=== PATIENT | female | born 2000 | race Caucasian/White ===

== ENCOUNTER 2024-01-09 15:46 | Outpatient (CLI) | payer BC, SELFPAY ==
--- NOTE | ~2024-01-09 | CT_ITS ---
EXAMINATION: CT hip LT wo con DATE: 01/09/2024 16:00 INDICATION: Left hip pain TECHNIQUE: High resolution computed tomography (CT) of the left hip was performed without intravenous contrast. Additional sagittal and coronal reconstructions were performed. Automated exposure control and iterative reconstruction technique were employed. The dose-length product was 328.60 mGy-cm. COMPARISON: None FINDINGS: Bone alignment is normal. No fracture. Small region of subtle subarticular sclerosis at the apex of t he femoral head. Right hip joint space is normal. The left acetabular and femoral head/neck morpholog y appears normal. No joint effusion. The musculature at the visualized left hemipelvis and proximal l eft thigh appears unremarkable. Partially visualized at least 1.8 cm left adnexal cyst/follicle. Smal l amount of likely physiologic free fluid in the cul-de-sac. No pathologically enlarged left pelvic o r inguinal lymphadenopathy. IMPRESSION: 1. Small region of subtle subarticular sclerosis at the apex of the left femoral head which raises th e possibility of developing osteonecrosis. Consider MRI for more sensitive and specific evaluation. Reviewed, dictated and finalized at location B. IMPRESSION: 1. Small region of subtle subarticular sclerosis at the apex of the left femora l head which raises the possibility of developing osteonecrosis. Consider MRI f or more sensitive and specific evaluation.
== END 2024-01-09 15:47 ==
LOC: GOSHIMG 15:49
PROVIDERS: PCP Internal Medicine; Visit Provider Physician Assistant
DX: M25.552 Pain in left hip (principal); G89.29 Other chronic pain
CPT/HCPCS: 73700

== ENCOUNTER 2024-01-19 15:29 | Outpatient (CLI) | payer BC, SELFPAY ==
--- NOTE | ~2024-01-19 | MR_ITS ---
EXAMINATION: MR hip LT wo con DATE: 01/19/2024 16:32 INDICATION: Left hip pain. TECHNIQUE: Magnetic resonance imaging (MRI) of the left hip was performed without intravenous contras t. COMPARISON: Left hip CT 01/09/24 FINDINGS: Bones/cartilage: Bone alignment is normal. No fracture. The femoral head/neck morphologies are normal. There is no ost eonecrosis. Small [id number] images of left hip demonstrate normal cartilage. Labrum: The left acetabular labrum is normal. Fluid: There is no hip joint effusion. No significant trochanteric bursitis. Soft tissues: There is an intrauterine device in expected position. The hamstring origins are normal. The iliopsoas tendons are normal. The gluteus minimus and gluteus medius tendons are normal. IMPRESSION: 1. Normal left hip. Reviewed, dictated and finalized at location E. IMPRESSION: 1. Normal left hip.
== END 2024-01-19 15:30 ==
LOC: GOSHIMG 15:30
PROVIDERS: PCP Internal Medicine; Visit Provider Physician Assistant
DX: M25.552 Pain in left hip (principal)
CPT/HCPCS: 73721